=== PATIENT | male | born 1960 | race Caucasian/White ===

== ENCOUNTER 2017-06-14 19:08 | Emergency (ER) | payer OTHER ==
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
== END 2017-06-14 21:06 | disposition home or self-care (01) ==
LOC: ER 19:08
DX: S20.212A Contusion of left front wall of thorax, initial encounter (principal); W01.0XXA Fall on same level from slipping, tripping and stumbling without subsequent striking against object, initial encounter
CPT/HCPCS: 94010; 99283